=== PATIENT | female | born 1960 | race African-American/Black ===

== ENCOUNTER 2018-10-03 21:58 | Emergency (ER) | payer SELFPAY ==
[2018-10-03 23:06] LABS: ABSOLUTE BASOPHILS # (AUTO) 0.1 10^3/uL (0.0-0.2); ABSOLUTE EOSINOPHILS # (AUTO) 0.1 10^3/uL (0.0-0.6); ABSOLUTE LYMPHOCYTES (AUTO) 1.4 10^3/uL (0.5-4.7); ABSOLUTE MONOCYTES (AUTO) 0.6 10^3/uL (0.1-1.4); ABSOLUTE NEUT (AUTO) 5.2 10^3/uL (1.7-8.2); BASOPHILS % (AUTO) 0.9 % (0-2); EOSINOPHILS % (AUTO) 0.9 % (0-6); HEMATOCRIT 35.8 % (36.0-47.0); HEMOGLOBIN 11.9 g/dL (12.0-15.5); LYMPHOCYTES % (AUTO) 18.8 % (13-45); MEAN CORPUSCULAR HEMOGLOBIN 28.3 pg (27.0-33.4); MEAN CORPUSCULAR HGB CONC 33.3 g/dL (32.0-36.0); MEAN CORPUSCULAR VOLUME 85 fl (80-97); MONOCYTES % (AUTO) 7.7 % (3-13); PLATELET COUNT 136 10^3/uL (150-450); RED BLOOD COUNT 4.21 10^6/uL (3.72-5.28); RED CELL DISTRIBUTION WIDTH 14.1 % (11.5-14.0); SEGMENTED NEUTROPHILS % (AUTO) 71.7 % (42-78); TOTAL CELLS COUNTED % (AUTO) 100 %; WHITE BLOOD COUNT 7.3 10^3/uL (4.0-10.5)
[2018-10-03] MEDS ORDERED: SULFAMETHOXAZOLE/TRIMETHOPRIM 800-160 MG TABLET PO ONE (23:12)
[2018-10-03] MEDS ORDERED: CEPHALEXIN 500 MG CAPSULE PO ONE (23:12)
[2018-10-03] MEDS ORDERED: KETOROLAC TROMETHAMINE INJ/PF 30 MG/1 ML SDV IV ONE (23:13)
[2018-10-03] MEDS ORDERED: MORPHINE SULFATE IR 15 MG TABLET PO ONE (23:13)
[2018-10-03] MEDS ORDERED: ACETAMINOPHEN 325 MG TABLET PO ONE (23:13)
[2018-10-03] MEDS ORDERED: DEXAMETHASONE 4 MG TABLET PO ONE (23:13)
--- NOTE | 2018-10-03 23:16 | ER Document Report ---
ED General - General Chief Complaint: Facial Swelling Stated Complaint: POSSIBLE FEVER Time Seen by Provider: 10/03/18 22:31 Notes: Patient is a 58-year-old female with a past medical history of tachycardia, cardiomyopathy, who presents with 2 weeks of progressively worsening pain over her nose and left maxillary sinus. The patient describes the pain as being a severe, constant, throbbing pain to the affected area. Touching the area worsens the pain. She has not tried anything for relief of the pain. She denies any history of similar symptoms in the past. She has not seen her general doctor regarding today's concerns. She denies any difficulty breathing but does state that she feels like her left nostril is quite congested. She also reports an associated global, throbbing, constant headache worsened by touching the area. She states that she has felt feverish but has not recorded a temperature at home. No trauma to the area. TRAVEL OUTSIDE OF THE [place] IN LAST 30 DAYS: No - Related Data Allergies/Adverse Reactions: No Known Allergies Allergy (Unverified 10/03/18 22:34) Past Medical History - General Information source: Patient - Social History Smoking Status: Never Smoker Frequency of alcohol use: None Drug Abuse: None Lives with: Family Family History: Reviewed & Not Pertinent Patient has suicidal ideation: No Patient has homicidal ideation: No - Past Medical History Cardiac Medical History: Reports: Hx Hypercholesterolemia, Hx Hypertension Endocrine Medical History: Reports: Hx Diabetes Mellitus Type 1 Renal/ Medical History: Reports: Hx Kidney Stones. Denies: Hx Peritoneal Dialysis Past Surgical History: Reports: Hx Kidney (Renal Surgery), Hx Orthopedic Surgery - LEFT 2ND TOE Review of Systems - Review of Systems Notes: Constitutional: Positive for subjective fever HENT: Positive for nose and facial pain on the left Eyes: Negative for visual changes. Cardiovascular: Negative for chest pain. Respiratory: Negative for shortness of breath. Gastrointestinal: Negative for abdominal pain, vomiting or diarrhea. Genitourinary: Negative for dysuria. Musculoskeletal: Negative for back pain. Skin: Negative for rash. Neurological: Negative for headaches, weakness or numbness. 10 point ROS negative except as marked above and in HPI. Physical Exam - Vital signs Vitals: Temp Pulse BP Pulse Ox 98.4 F 116 H 159/73 H 97 10/03/18 22:05 10/03/18 22:05 10/03/18 22:05 11/03/18 22:05 Interpretation: Tachycardic - Patient reports this is baseline Notes: PHYSICAL EXAMINATION: GENERAL: Appears moderately uncomfortable but in no acute distress HEAD: Atraumatic, normocephalic. EYES: Pupils equal round and reactive to light, extraocular movements intact, sclera anicteric, conjunctiva are normal. No proptosis. No evidence of entrapment. ENT: Mild narrowing of the left nasal passage. No septal deviation. NECK: Normal range of motion, supple without lymphadenopathy LUNGS: Breath sounds clear to auscultation bilaterally and equal. No wheezes rales or rhonchi. HEART: Regular rate and rhythm without murmurs ABDOMEN: Soft, nontender, normoactive bowel sounds. No guarding, no rebound. No masses appreciated. EXTREMITIES: Normal range of motion, no pitting or edema. No cyanosis. NEUROLOGICAL: No focal neurological deficits. Moves all extremities spontaneously and on command. PSYCH: Normal mood, normal affect. SKIN: Warm, Dry, normal turgor, there is darkening of the skin overlying the nasal bridge and the left nostril extending over to the left maxillary sinus region abutting the nose. Patient has exquisite tenderness to palpation of the area. No fluctuance. Soft tissue swelling noted to the area. Course - Re-evaluation Re-evalutation: 10/03/18 23:13 Patient presents with swelling over the bridge of her nose extending over the left nostril and over the left maxillary sinus and what appears to be a facial cellulitis. There is no evidence of an orbital cellulitis, no proptosis, extraocular motions intact. No involvement of the sclerae or conjunctivae. Patient is tachycardic although has tachycardia at baseline and states that this current heart rate of between 105 and 110 is her baseline. She reports that she has had body aches and headaches at home which I anticipate are related to the infection itself. Her labs are unremarkable without evidence of a leukocytosis. The patient does not take an SHARITA or an arm. No evidence of angioedema. Patient has been started on trimethoprim sulfamethoxazole as well as cephalexin. A dose of dexamethasone has been given to reduce swelling. At this time will discharge with return precautions and follow-up recommendations. Verbal discharge instructions given a the bedside and opportunity for questions given. Medication warnings reviewed. Patient is in agreement with this plan and has verbalized understanding of return precautions and the need for primary care follow-up in the next 24-72 hours. - Vital Signs Vital signs: Temp Pulse Resp BP Pulse Ox 98.1 F 98 16 148/68 H 98 10/03/18 23:59 10/03/18 23:59 10/03/18 23:59 10/03/18 23:59 10/03/18 23:59 - Laboratory Result Diagrams: 10/03/18 22:45 10/03/18 22:45 Laboratory results interpreted by me: 10/03/18 22:45 Hgb 11.9 L Hct 35.8 L RDW 14.1 H Plt Count 136 L Discharge - Discharge Clinical Impression: Facial pain, Facial cellulitis Condition: Good Disposition: HOME, SELF-CARE Additional Instructions: The rash is likely due to infection of your skin on your face. You need to take the antibiotics as prescribed. Do not stop even if the rash goes away until you have completed all the antibiotics. Please return if you have worsening of the redness or swelling on her face. You should also return if you develop fevers with temperature greater than 101, persistent vomiting, worsening pain, or have any other symptoms that are concerning to you. Please follow-up with your doctor within the next 48 hours. For your pain: Take ibuprofen 600 mg and acetaminophen 1000 mg every 6 hours together as needed for pain. If this does not control your pain you may take 15 mg of oral morphine every 4 hours as needed. Please be very careful about using the oral morphine and only use this for severe pain. Prescriptions: Morphine Sulfate [Morphine Ir 15 mg Tablet] 15 mg PO Q6HP PRN #6 tablet PRN Reason: Cephalexin Monohydrate [Keflex 500 mg Capsule] 500 mg PO Q6H 7 Days #28 capsule Sulfamethoxazole/Trimethoprim [Bactrim Ds Tablet] 1 tab PO BID #14 tablet Referrals: SUSAN MCCRAY MD [ACTIVE STAFF] - Follow up as needed
[2018-10-04] VITALS: BP 148/68
--- NOTE | 2018-10-04 09:40 | EKG REPORT ---
SEVERITY:- BORDERLINE ECG - SINUS TACHYCARDIA PROBABLE LEFT ATRIAL ABNORMALITY : Confirmed by: Tanesha Morrow MD 04-Oct-2018 09:39:17
== END 2018-10-04 00:08 | disposition home or self-care (01) ==
LOC: ER 21:58
DX: L03.211 Cellulitis of face (principal); R51 Headache; J34.89 Other specified disorders of nose and nasal sinuses; I10 Essential (primary) hypertension; E11.9 Type 2 diabetes mellitus without complications; R00.0 Tachycardia, unspecified
CPT/HCPCS: 93005; 99284; 96374; 36415; 85025; 84484; 93010; J1885